=== PATIENT | female | born 1965 | race African-American/Black ===

== ENCOUNTER 2016-11-04 05:20 | Inpatient (IN) | payer MEDICARE ==
[2016-11-04] VITALS (7 sets, daily range): BP systolic 129–154; BP diastolic 63–82; PULSE 68–86; RESP 18–20; TEMP 97.7–98.3; O2SAT 97–100
[~2016-11-04] VITALS: Ht 157.5 cm; Wt 100.3 kg
[~2016-11-04 05:20] MED LIST: MORP30SU PO; ONDA1TAB16 PO
[2016-11-04] MEDS ORDERED: MORP25IN2 PO (05:28)
[2016-11-04] MEDS ORDERED: SODIUM CHLOR 0.9% 1000 ML INJ 1,000 ML IV SCH (06:10)
[2016-11-04] MEDS ORDERED: ONDANSETRON HCL 4 MG/2 ML VIAL IVP ONE (06:15)
[2016-11-04] MEDS ORDERED: SODIUM CHLORIDE 0.9% FLUSH 5 ML FLUSH IVF PRN (06:15)
[2016-11-04] MEDS ORDERED: MORPHINE SULFATE 4 MG/ML INJ IV PUSH ONE ×2 (06:15→08:45)
--- NOTE | 2016-11-04 06:39 | PD ---
HPI Chief Complaint: GI Complaint Time Seen by Provider: 05:53 Travel History International Travel<30 days: No Contact w/Intl Traveler<30days: No Traveled to known affect area: No History of Present Illness HPI Patient is a 50 year old female who comes in complaining of abdominal pain, nausea, vomiting, diarrhea. She says that she ate a dinner of eggs, grits and sausage as well as a brownie with ice cream and then she became sick. She says she vomited several times and started having diarrhea. She says she thought it was food poisoning, but when she had a bowel movement, she said it was pure blood. She says she feels weak. She denies chest pain or SOB. She denies palpitations. She says this has never happened before. Her significant other had the same food tonight and has no symptoms. PFSH Past Medical History Medical History: Denies Significant Hx Diminished Hearing: No Immunizations Current: No Tetanus Vaccination: Unknown Influenza Vaccination: No ?: Not : 3 Para: 3 Tubal Ligation: Yes (19 YRS AGO) Past Surgical History Hysterectomy: Yes Social History Alcohol Use: Yes (OCCASSIONAL) Tobacco Use: No Substance Use: No Allergies-Medications (Allergen,Severity, Reaction): Coded Allergies: Sulfa (Verified Allergy, Intermediate, ITCHES FROM "INSIDE OUT", 11/04/16) Reported Meds & Prescriptions Reported Meds & Active Scripts Active Reported Morphine Sulfate 25 Mg/Ml Inj 30 Mg PO Q4HR PRN Review of Systems Except as stated in HPI: all other systems reviewed are Neg General / Constitutional: No: Fever, Chills HENT: Positive: Lightheadedness, No: Headaches Cardiovascular: No: Chest Pain or Discomfort Respiratory: No: Shortness of Breath Gastrointestinal: Positive: Nausea, Vomiting, Diarrhea, Abdominal Pain Genitourinary: No: Dysuria Musculoskeletal: No: Edema, Pain Skin: No Change in Pigmentation Neurologic: No: Syncope Physical Exam Narrative GENERAL: Awake and alert in no acute distress. SKIN: Warm and dry. HEAD: Atraumatic. Normocephalic. EYES: Pupils equal and round. No scleral icterus. ENT: No nasal bleeding or discharge. NECK: Trachea midline. No JVD. CARDIOVASCULAR: Regular rate and rhythm. No murmur appreciated. RESPIRATORY: No accessory muscle use. Clear to auscultation. Breath sounds equal bilaterally. GASTROINTESTINAL: Abdomen soft, nondistended. Tender to palpation along left side of the abdomen as well as around the umbilicus. No rebound or guarding. RECTAL: Exam performed in the presence of female armored car guard and driver. No hemorrhoids seen. Stool positive for blood. MUSCULOSKELETAL: No obvious deformities. No clubbing. No cyanosis. No edema. NEUROLOGICAL: Awake and alert. No obvious cranial nerve deficits. Motor grossly within normal limits. Normal speech. PSYCHIATRIC: Appropriate mood and affect; insight and judgment normal. Data Data Last Documented VS Vital Signs Date Time Temp Pulse Resp B/P Pulse Ox O2 Delivery O2 Flow Rate FiO2 11/04/16 07:32 98 Room Air 11/04/16 05:22 98.3 86 20 154/82 Orders Complete Blood Count With Diff (11/04/16 06:10) Comprehensive Metabolic Panel (11/04/16 06:10) Lipase (11/04/16 06:10) Lactic Acid (11/04/16 06:10) Prothrombin Time / Inr (Pt) (11/04/16 06:10) Act Partial Throm Time (Ptt) (11/04/16 06:10) Urinalysis - C+S If Indicated (11/04/16 06:10) Ua Includes Microscopic (11/04/16 06:10) Ct Abd/Pel W Iv Contrast(Rout) (11/04/16 06:10) Iv Access Insert/Monitor (11/04/16 06:10) Ecg Monitoring (11/04/16 06:10) Oximetry (11/04/16 06:10) Ondansetron Inj (Zofran Inj) (11/04/16 06:15) Sodium Chlor 0.9% 1000 Ml Inj (Ns 1000 M (11/04/16 06:10) Sodium Chloride 0.9% Flush (Ns Flush) (11/04/16 06:15) Type And Screen (11/04/16 06:10) Morphine Inj (Morphine Inj) (11/04/16 06:15) C Diff Toxin Pcr (11/04/16 07:19) Iohexol 350 Inj (Omnipaque 350 Inj) (11/04/16 07:49) Labs Laboratory Tests Test 11/04/16 11/04/16 06:20 06:26 White Blood Count 10.3 TH/MM3 Red Blood Count 4.05 MIL/MM3 Hemoglobin 10.6 GM/DL Hematocrit 32.2 % Mean Corpuscular Volume 79.5 FL Mean Corpuscular Hemoglobin 26.1 PG Mean Corpuscular Hemoglobin 32.8 % Concent Red Cell Distribution Width 13.7 % Platelet Count 326 TH/MM3 Mean Platelet Volume 8.9 FL Neutrophils (%) (Auto) 81.5 % Lymphocytes (%) (Auto) 11.4 % Monocytes (%) (Auto) 6.6 % Eosinophils (%) (Auto) 0.1 % Basophils (%) (Auto) 0.4 % Neutrophils # (Auto) 8.4 TH/MM3 Lymphocytes # (Auto) 1.2 TH/MM3 Monocytes # (Auto) 0.7 TH/MM3 Eosinophils # (Auto) 0.0 TH/MM3 Basophils # (Auto) 0.0 TH/MM3 CBC Comment DIFF FINAL Differential Comment Prothrombin Time 10.8 SEC Prothromb Time International 1.0 RATIO Ratio Activated Partial 26.2 SEC Thromboplast Time Sodium Level 140 MEQ/L Potassium Level 3.5 MEQ/L Chloride Level 103 MEQ/L Carbon Dioxide Level 29.0 MEQ/L Anion Gap 8 MEQ/L Blood Urea Nitrogen 10 MG/DL Creatinine 0.92 MG/DL Estimat Glomerular Filtration 78 ML/MIN Rate Random Glucose 114 MG/DL Lactic Acid Level 1.3 mmol/L Calcium Level 9.1 MG/DL Total Bilirubin 0.3 MG/DL Aspartate Amino Transf 19 U/L (AST/SGOT) Alanine Aminotransferase 16 U/L (ALT/SGPT) Alkaline Phosphatase 65 U/L Total Protein 8.2 GM/DL Albumin 3.5 GM/DL Lipase 107 U/L Urine Color YELLOW Urine Turbidity CLEAR Urine pH 7.0 Urine Specific [place] 1.009 Urine Protein TRACE mg/dL Urine Glucose (UA) NEG mg/dL Urine Ketones NEG mg/dL Urine Occult Blood TRACE Urine Nitrite NEG Urine Bilirubin NEG Urine Urobilinogen LESS THAN 2.0 MG/DL Urine Leukocyte Esterase NEG Urine RBC 4 /hpf Urine WBC 3 /hpf Urine Squamous Epithelial 1 /hpf Cells Urine Bacteria RARE /hpf Urine Mucus FEW /lpf Microscopic Urinalysis Comment CULT NOT INDICATED MDM Medical Decision Making Medical Screen Exam Complete: Yes Emergency Medical Condition: Yes Medical Record Reviewed: Yes Differential Diagnosis Diverticulitis versus diverticulosis versus colitis versus infectious diarrhea Narrative Course Patient is a 50-year-old female comes in complaining of abdominal pain with nausea, vomiting, diarrhea. She is concerned because her diarrhea is full of blood. Exam shows tenderness to her abdomen without rebound or guarding. IV established, labs sent. Patient given IV fluids, Zofran, morphine. CT of the abdomen and pelvis performed. Patient signed out to Dr. Myers to follow up test results and disposition appropriately. [facility]pt Point of Care Internal Pos. & Neg. Controls: Passed Fecal Specimen Occult Blood: Positive Condition: Stable Fay Dalton MD Nov 04, 2016 06:39
[2016-11-04 06:53] LABS: AUTOMATED NEUTROPHIL # 8.4 TH/MM3 (1.8-7.7); BASOPHIL % 0.4 % (0.0-2.0); EOSINOPHIL % 0.1 % (0.0-4.0); HEMATOCRIT 32.2 % (35.0-46.0); HEMO FLAGS DIFF FINAL; LYMPH % 11.4 % (9.0-44.0); LYMPHOCYTE # 1.2 TH/MM3 (1.0-4.8); MEAN CELL VOLUME 79.5 FL (80.0-100.0); MEAN CORPUSCULAR HEMOGLOBIN 26.1 PG (27.0-34.0); MEAN CORPUSCULAR HGB CONC 32.8 % (32.0-36.0); MONO % 6.6 % (0.0-8.0); NEUT % 81.5 % (16.0-70.0); PLATELET COUNT 326 TH/MM3 (150-450); RED BLOOD COUNT 4.05 MIL/MM3 (4.00-5.30); RED CELL DISTRIBUTION WIDTH 13.7 % (11.6-17.2); WHITE BLOOD COUNT 10.3 TH/MM3 (4.0-11.0)
[2016-11-04 07:03] LABS: BACTERIA, URINE RARE /hpf; BLOOD, URINE TRACE (NEG); COMMENT (UR) CULT NOT INDICATED; CULTURE IF INDICATED CULT NOT INDICATED; GLUCOSE,URINE NEG (NEG); KETONE, URINE NEG (NEG); MUCUS URINE FEW /lpf (OCC); NITRITE,URINE NEG (NEG); SQUAMOUS EPITHELIAL CELL URINE 1 /hpf (0-5); URINE COLOR YELLOW (YELLW/STRAW)
[2016-11-04 07:19] LABS: APTT (PATIENT) 26.2 SEC (24.3-30.1); PROTHROMBIN TIME - PATIENT 10.8 SEC (9.8-11.6)
[2016-11-04 07:22] LABS: ANION GAP 8 MEQ/L (5-15); AST (GOT) 19 U/L (15-37); BLOOD UREA NITROGEN 10 MG/DL (7-18); CHLORIDE 103 MEQ/L (98-107); GLOMERULAR FILTRATION RATE 78 ML/MIN (>89); POTASSIUM 3.5 MEQ/L (3.5-5.1); SODIUM (NA) 140 MEQ/L (136-145)
[2016-11-04 07:25] LABS: ALKALINE PHOSPHATASE 65 U/L (45-117); ALT (GPT) 16 U/L (10-53); TOTAL BILIRUBIN ADULT 0.3 MG/DL (0.2-1.0)
[2016-11-04] MEDS ORDERED: IOHEXOL 350 MG/ML 10 ML VIAL (for RAD DIAG) IV ONE (07:49)
--- NOTE | 2016-11-04 08:05 | RADRPT ---
EXAM DATE/TIME: 11/04/2016 07:41 [facility] COMPARISON: CT ABDOMEN & PELVIS W/O CONTRAST, November 01, 2015, 13:56. INDICATIONS : Left sided abdominal pain with vomiting and blood in stool. IV CONTRAST: 95 cc Omnipaque 350 (iohexol) IV ORAL CONTRAST: No oral contrast ingested. RADIATION DOSE: 20.36 CTDIvol (mGy) MEDICAL HISTORY : None SURGICAL HISTORY : Tubal ligation. Hysterectomy. ENCOUNTER: Initial ACUITY: 1 day PAIN SCALE: 10/10 LOCATION: Left abdomen TECHNIQUE: Volumetric scanning of the abdomen and pelvis was performed. Using automated exposure control and ad justment of the mA and/or kV according to patient size, radiation dose was kept as low as reasonably achievable to obtain optimal diagnostic quality images. FINDINGS: LOWER LUNGS: The visualized lower lungs are clear. LIVER: Homogeneous density without lesion. There is no dilation of the biliary tree. No calcified gallston es. SPLEEN: Normal size without lesion. PANCREAS: Within normal limits. KIDNEYS: Normal in size and shape. The there is no significant hydronephrosis on the right side. There does ap pear to be 2 stones in the proximal right ureter. There is a stone measuring about 6 mm and a stone m easuring about 4 mm in the proximal right ureter. It appears these were present on the prior study. T here is a 7 mm stone at the left midpole near the left UPJ. There is also a tiny 3 mm stone in the pr oximal left ureter. There is mild prominence of the left collecting system. There is some perinephric edema surrounding the left kidney. ADRENAL GLANDS: Within normal limits. VASCULAR: There is no aortic aneurysm. BOWEL/MESENTERY: The stomach, small bowel, and colon demonstrate no acute abnormality. There is no free intraperitone al air or fluid. The appendix is unremarkable. No inflammatory changes. ABDOMINAL WALL: Within normal limits. RETROPERITONEUM: There is no lymphadenopathy. BLADDER: No wall thickening or mass. REPRODUCTIVE: Within normal limits. INGUINAL: There is no lymphadenopathy or hernia. MUSCULOSKELETAL: Within normal limits for patient age. CONCLUSION: 1. There is a 7 mm stone in the left mid kidney near the left UPJ. There is some mild hydronephrosis of the left kidney with perinephric edema. 2. There is a tiny 3 mm stone in the proximal left ureter. 3. There are 2 stones in the proximal right ureter which do not appear to causing any significant obs truction at this time. These were present on the prior examination. Zach Murillo MD on November 04, 2016 at 7:56 Board Certified Radiologist. This report was verified electronically.
--- NOTE | 2016-11-04 08:52 | PD ---
Physical Exam Date Seen by Provider: Nov 04, 2016 Time Seen by Provider: 08:49 Narrative 50-year-old female came to the emergency room with history of left flank pain and hematochezia that started last night. Patient thought that she might have had food poisoning although her and her ate the same food. The does not have these symptoms. She was seen by the previous ER physician who had done a rectal exam and was Hemoccult positive. Please refer to her notes for the details. Patient has not had anymore bowel movement in the emergency room. She says she has been going frequently to the bathroom to urinate. No history of hematuria. There was a CT scan done which was pending and for me to follow-up. Test results were within normal limit. Urine showed trace blood but otherwise negative. CT report came back and is suggestive of multiple stones in both right and the left ureter. There is one on the left ureter one of them is 7 mm and causing hydronephrosis and perinephric edema. I went and reassessed the patient and told her about the CAT scan report. Her pain she said is coming back and currently is 6-7 out of 10. I have ordered another dose of morphine. I spoke with Dr. Vargas who is on for urology today. Patient will be admitted and he will consult on the patient. He had no further suggestion at this point to add. Awaiting for the hospitalist to call back. Patient is aware that she would need to be admitted. I've ordered stool for culture and C. difficile which will be sent once patient has a bowel movement. Data Data Last Documented VS Vital Signs Date Time Temp Pulse Resp B/P Pulse Ox O2 Delivery O2 Flow Rate FiO2 11/04/16 08:05 78 18 139/76 100 Room Air 11/04/16 05:22 98.3 Orders Complete Blood Count With Diff (11/04/16 06:10) Comprehensive Metabolic Panel (11/04/16 06:10) Lipase (11/04/16 06:10) Lactic Acid (11/04/16 06:10) Prothrombin Time / Inr (Pt) (11/04/16 06:10) Act Partial Throm Time (Ptt) (11/04/16 06:10) Urinalysis - C+S If Indicated (11/04/16 06:10) Ua Includes Microscopic (11/04/16 06:10) Ct Abd/Pel W Iv Contrast(Rout) (11/04/16 06:10) Iv Access Insert/Monitor (11/04/16 06:10) Ecg Monitoring (11/04/16 06:10) Oximetry (11/04/16 06:10) Ondansetron Inj (Zofran Inj) (11/04/16 06:15) Sodium Chlor 0.9% 1000 Ml Inj (Ns 1000 M (11/04/16 06:10) Sodium Chloride 0.9% Flush (Ns Flush) (11/04/16 06:15) Type And Screen (11/04/16 06:10) Morphine Inj (Morphine Inj) (11/04/16 06:15) C Diff Toxin Pcr (11/04/16 07:19) Iohexol 350 Inj (Omnipaque 350 Inj) (11/04/16 07:49) Morphine Inj (Morphine Inj) (11/04/16 08:45) Admit Order (Ed Use Only) (11/04/16 09:14) Code Status (11/04/16 09:15) Vital Signs (Adult) Q4H (11/04/16 09:15) Activity Bed Rest With Brp (11/04/16 09:15) Intake + Output MIRIAM.QSHIFT (11/04/16 09:15) Diet Npo (11/04/16 Breakfast) Basic Metabolic Panel (Bmp) (11/05/16 06:00) Complete Blood Count With Diff (11/05/16 06:00) Scd Bilateral/Knee High MIRIAM.QSHIFT (11/04/16 09:15) Admit To Inpatient (11/04/16 ) Ceftriaxone Inj (Rocephin Inj) (11/04/16 10:00) Tamsulosin (Flomax) (11/04/16 11:00) Sodium Chlor 0.9% 1000 Ml Inj (Ns 1000 M (11/04/16 09:15) Acetaminophen (Tylenol) (11/04/16 09:15) Oxycodone (Roxicodone) (11/04/16 09:15) Morphine Inj (Morphine Inj) (11/04/16 09:15) Oxycodone (Roxicodone) (11/04/16 09:15) Naloxone Inj (Narcan Inj) (11/04/16 09:15) Labs Laboratory Tests Test 11/04/16 11/04/16 11/04/16 06:15 06:20 06:26 Blood Type O NEGATIVE Antibody Screen NEGATIVE Blood Bank Comment White Blood Count 10.3 TH/MM3 Red Blood Count 4.05 MIL/MM3 Hemoglobin 10.6 GM/DL Hematocrit 32.2 % Mean Corpuscular Volume 79.5 FL Mean Corpuscular Hemoglobin 26.1 PG Mean Corpuscular Hemoglobin 32.8 % Concent Red Cell Distribution Width 13.7 % Platelet Count 326 TH/MM3 Mean Platelet Volume 8.9 FL Neutrophils (%) (Auto) 81.5 % Lymphocytes (%) (Auto) 11.4 % Monocytes (%) (Auto) 6.6 % Eosinophils (%) (Auto) 0.1 % Basophils (%) (Auto) 0.4 % Neutrophils # (Auto) 8.4 TH/MM3 Lymphocytes # (Auto) 1.2 TH/MM3 Monocytes # (Auto) 0.7 TH/MM3 Eosinophils # (Auto) 0.0 TH/MM3 Basophils # (Auto) 0.0 TH/MM3 CBC Comment DIFF FINAL Differential Comment Prothrombin Time 10.8 SEC Prothromb Time International 1.0 RATIO Ratio Activated Partial 26.2 SEC Thromboplast Time Sodium Level 140 MEQ/L Potassium Level 3.5 MEQ/L Chloride Level 103 MEQ/L Carbon Dioxide Level 29.0 MEQ/L Anion Gap 8 MEQ/L Blood Urea Nitrogen 10 MG/DL Creatinine 0.92 MG/DL Estimat Glomerular Filtration 78 ML/MIN Rate Random Glucose 114 MG/DL Lactic Acid Level 1.3 mmol/L Calcium Level 9.1 MG/DL Total Bilirubin 0.3 MG/DL Aspartate Amino Transf 19 U/L (AST/SGOT) Alanine Aminotransferase 16 U/L (ALT/SGPT) Alkaline Phosphatase 65 U/L Total Protein 8.2 GM/DL Albumin 3.5 GM/DL Lipase 107 U/L Urine Color YELLOW Urine Turbidity CLEAR Urine pH 7.0 Urine Specific [place] 1.009 Urine Protein TRACE mg/dL Urine Glucose (UA) NEG mg/dL Urine Ketones NEG mg/dL Urine Occult Blood TRACE Urine Nitrite NEG Urine Bilirubin NEG Urine Urobilinogen LESS THAN 2.0 MG/DL Urine Leukocyte Esterase NEG Urine RBC 4 /hpf Urine WBC 3 /hpf Urine Squamous Epithelial 1 /hpf Cells Urine Bacteria RARE /hpf Urine Mucus FEW /lpf Microscopic Urinalysis Comment CULT NOT INDICATED MDM Supervised Visit with ANCA: No Physician Communication Physician Communication Dr. Vargas Diagnosis Primary Impression: Renal colic, bilateral Additional Impressions: Hydronephrosis of left kidney Hematochezia Intractable pain Admitting Information Admitting Physician Requests: Admit Condition: Stable Law Myers MD Nov 04, 2016 08:52
[2016-11-04] MEDS ORDERED: ACETAMINOPHEN 325 MG TAB PO PRN (09:15)
[2016-11-04] MEDS ORDERED: NALOXONE HCL 0.4 MG/ML AMP IV PRN (09:15)
[2016-11-04] MEDS: cefTRIAXone INJ 1,000 MG in SODIUM CHLORIDE 0.9% INJ 100 ML IV SCH (10:12)
[2016-11-04] MEDS: SODIUM CHLOR 0.9% 1000 ML INJ 1,000 ML IV SCH ×3 (10:12→23:50)
--- NOTE | 2016-11-04 10:15 | MB ---
cc: ROLAND SUÁREZ MD DATE OF CONSULTATION: 11/04/2016 REASON FOR CONSULTATION 1. Bilateral ureteral obstructing stones. 2. Left flank pain. HISTORY OF PRESENT ILLNESS The patient is a pleasant 50-year-old -Chinese female who came in with 1-day history of left-sided abdominal pain, nausea and vomiting, diarrhea with blood in her stools. The patient states last night she ate dinner and became sick so she thought it was food poisoning. She vomited several times and started having diarrhea. One of her last bowel movements she had was pure blood and her abdominal pain worsened on the left side. Therefore, she came to the ER for further evaluation. In the ER she had a CT of the abdomen and pelvis with contrast done which showed bilateral ureteral stones with greater hydronephrosis on the right compared to the left. Urology was consulted for this finding. She does complain of being weak but denies any chest pain, shortness of breath. Denies dysuria or hematuria, fevers or chills. She had a known kidney stone on the right side for about a year when she came to the ER with right-sided flank pain over a year ago. She denies any family history of kidney stones. She continues to have pain despite given morphine in the ER. She denies family history of genitourinary malignancies. PAST MEDICAL HISTORY Significant for kidney stones. PAST SURGICAL HISTORY Hysterectomy. SOCIAL HISTORY Denies tobacco or illicit drug use. Does drink alcohol socially. She is . ALLERGIES SULFA. MEDICATIONS Home medications: None. FAMILY HISTORY Denies urolithiasis or genitourinary malignancies. REVIEW OF SYSTEMS See HPI. Otherwise, all systems reviewed otherwise are negative. PHYSICAL EXAMINATION VITAL SIGNS: Temperature 98.3, pulse 78, respiratory rate 18, BP 139/76, sating 100% on room air. GENERAL: She is alert and oriented x3, in no apparent distress. Pleasant, cooperative woman who appears her stated age. HEAD: Head is normocephalic, atraumatic. EYES: No scleral icterus. Pupils equal, round, reactive to light. Extraocular muscles intact. NECK: Neck is supple. Trachea is midline. No JVD. ENT: No nasal bleeding or discharge. Hearing is normal. CARDIOVASCULAR: Regular rate and rhythm. No murmurs, gallops or rubs. RESPIRATORY: Clear to auscultation bilaterally. No wheezes, rales or rhonchi. GASTROINTESTINAL: Abdomen is soft, nondistended. Positive bowel sounds. No peritoneal signs. GENITOURINARY: No CVA tenderness bilaterally. PELVIC: Exam not indicated at this time. MUSCULOSKELETAL: No clubbing, cyanosis, edema, nontender. Full range of motion x4. PSYCHE: Appropriate mood and affect. SKIN: No ulcers or rashes. Warm and dry. Did not appear to be Dehydrated. LABORATORY DATA White count 10.3, hemoglobin 10.6, hematocrit 32.2, platelet count 326. Sodium 140, potassium 3.5, chloride 103, bicarb 29, BUN 10, creatinine 0.92, glucose 114. Urine shows trace blood, otherwise negative nitrites. IMAGING STUDIES CT of the abdomen and pelvis with and without contrast was reviewed. Images reviewed and agree with radiologist's report, has bilateral obstructing ureteral stones as well as non-obstructing left approximately 8 mm renal stone. ASSESSMENT The patient is a 50-year-old -Chinese female, who presents with abdominal pain, nausea, vomiting, was found to have bilateral obstructing ureteral stones. PLAN Even though she is making urine and pain only on her left side, she does have bilateral obstructing stones which she is at significant risk for acute renal failure. Due to her uncontrolled pain and these bilateral stones, we will schedule her for cystoscopy, bilateral retrograde pyelogram and bilateral ureteral stent insertion under anesthesia today. I discussed the risks, benefits, alternatives with the patient regarding the procedure including anesthesia risks and the inability to pass ureteral stents. She understood these risks, all questions were answered. Informed consent was obtained. Will obtain EKG preoperatively. Roland Suárez MD EMF/FAUSTINO /9:37 AM /9:50 AM
--- NOTE | 2016-11-04 10:50 | HHI.HP ---
[facility] Service [facility] Primary Care Physician No Primary Care Physician Admission Diagnosis renal colic, hydronephrosis, hematochezia, intractable pain Diagnoses: Chief Complaint: GI bleeding and abdominal pain Travel History International Travel<30 Days: No Contact w/Intl Traveler <30 Da: No Traveled to Known Affected Are: No History of Present Illness This is a 50-year-old female with no comorbidities other than history of right urolithiasis presenting with left back pain and hematochezia since yesterday night after dinner. She just ate her usual dinner at home when she started having left flank pain, moderate, nonradiating, associated with loose stools with red blood and tenesmus. She thought she had food poisoning. She also had nausea and vomiting of post prandial material but no hematemesis. She did not have any fever, chills, chest pain, shortness of breath, headache, urinary symptoms or hematuria. Now, she is also having right sided moderate abdominal pain, nonradiating. CT scan of the abdomen was then at the ED which showed bilateral renal stones with hydronephrosis on the left with perinephric edema. Of note, she takes morphine and Goody's ( caffeine, Tylenol, aspirin) also a daily basis for her chronic neck pain. No previous colonoscopy, no history of colon cancer or peptic ulcer disease in the family. . There is also no history of Crohn's disease or inflammatory bowel disease in family. No recent antibiotic use. Review of Systems ROS Limitations: Other (All other pertinent systems were reviewed and are negative.) Past Family Social History Past Medical History Chronic neck pain Right urolithiasis Past Surgical History Neck surgery Reported Medications Morphine Sulfate 25 Mg/Ml Inj 30 Mg PO Q4HR PRN Allergies: Coded Allergies: Sulfa (Verified Allergy, Intermediate, ITCHES FROM "INSIDE OUT", 11/04/16) Family History History of endstage showed disease in both parents, mother has diabetes. Social History Patient denies smoking, significant alcohol intake or use of any illicit drugs. Physical Exam Vital Signs Vital Signs Date Time Temp Pulse Resp B/P Pulse Ox O2 Delivery O2 Flow Rate FiO2 11/04/16 10:16 74 20 130/70 100 Room Air 11/04/16 08:05 78 18 139/76 100 Room Air 11/04/16 07:32 98 Room Air 11/04/16 05:22 98.3 86 20 154/82 100 Room Air Physical Exam GENERAL: Not in acute distress, well-nourished. HEAD: Atraumatic. Normocephalic. No temporal or scalp tenderness. EYES: PERRL, full EOMs, no jaundice, nonicteric, pink conjunctivae without injection, moist mucosa ENT: Nose without bleeding, purulent drainage. Throat without erythema, tonsillar hypertrophy or exudate. Dry oral mucosa. NECK: Trachea midline, no mass, no obvious thyromegaly. No JVD or lymphadenopathy. CARDIOVASCULAR: Regular rate and rhythm without murmurs, gallops, or rubs. RESPIRATORY: Clear to auscultation with normal respiratory effort. Breath sounds equal bilaterally. No use of accessory muscles of respiration. GASTROINTESTINAL: Abdomen soft, obese, normal bowel sounds, mild left-sided tenderness, nondistended. No hepato-splenomegaly or palpable mass. No guarding. BEAN and exam deferred. MUSCULOSKELETAL: Extremities without clubbing, cyanosis, or edema. No joint tendernes. No calf tenderness. Distal pulses intact, 2+ bilaterally. INTEGUMENTARY: Warm and dry, no rash of generalized distribution. NEUROLOGICAL: Awake, alert, oriented 3. No obvious cranial nerve deficits. Moves all 4 extremities, muscle strength testing 5 over 5. Motor and sensory grossly within normal limits. .Supple neck, no meningeal signs. Grossly negative cerebellar examination. No focal neurologic deficits. PSYCHIATRIC: Normal mood, appropriate affect. Laboratory Laboratory Tests Test 11/04/16 11/04/16 11/04/16 06:15 06:20 06:26 Blood Type O NEGATIVE Antibody Screen NEGATIVE Blood Bank Comment White Blood Count 10.3 Red Blood Count 4.05 Hemoglobin 10.6 Hematocrit 32.2 Mean Corpuscular Volume 79.5 Mean Corpuscular Hemoglobin 26.1 Mean Corpuscular Hemoglobin 32.8 Concent Red Cell Distribution Width 13.7 Platelet Count 326 Mean Platelet Volume 8.9 Neutrophils (%) (Auto) 81.5 Lymphocytes (%) (Auto) 11.4 Monocytes (%) (Auto) 6.6 Eosinophils (%) (Auto) 0.1 Basophils (%) (Auto) 0.4 Neutrophils # (Auto) 8.4 Lymphocytes # (Auto) 1.2 Monocytes # (Auto) 0.7 Eosinophils # (Auto) 0.0 Basophils # (Auto) 0.0 CBC Comment DIFF FINAL Differential Comment Prothrombin Time 10.8 Prothromb Time International 1.0 Ratio Activated Partial 26.2 Thromboplast Time Sodium Level 140 Potassium Level 3.5 Chloride Level 103 Carbon Dioxide Level 29.0 Anion Gap 8 Blood Urea Nitrogen 10 Creatinine 0.92 Estimat Glomerular Filtration 78 Rate Random Glucose 114 Lactic Acid Level 1.3 Calcium Level 9.1 Total Bilirubin 0.3 Aspartate Amino Transf 19 (AST/SGOT) Alanine Aminotransferase 16 (ALT/SGPT) Alkaline Phosphatase 65 Total Protein 8.2 Albumin 3.5 Lipase 107 Urine Color YELLOW Urine Turbidity CLEAR Urine pH 7.0 Urine Specific [place] 1.009 Urine Protein TRACE Urine Glucose (UA) NEG Urine Ketones NEG Urine Occult Blood TRACE Urine Nitrite NEG Urine Bilirubin NEG Urine Urobilinogen LESS THAN 2.0 Urine Leukocyte Esterase NEG Urine RBC 4 Urine WBC 3 Urine Squamous Epithelial 1 Cells Urine Bacteria RARE Urine Mucus FEW Microscopic Urinalysis Comment CULT NOT INDICATED Result Diagram: 11/04/1661911/04/16619 Imaging Last Impressions Abdomen/Pelvis CT 11/04/16609 Signed Impressions: Service Date/Time: Friday, November 04, 2016 07:41 - CONCLUSION: 1. There is a 7 mm stone in the left mid kidney near the left UPJ. There is some mild hydronephrosis of the left kidney with perinephric edema. 2. There is a tiny 3 mm stone in the proximal left ureter. 3. There are 2 stones in the proximal right ureter which do not appear to causing any significant obstruction at this time. These were present on the prior examination. Zach Murillo MD Assessment and Plan Assessment and Plan This is a 50-year-old female with history of right urolithiasis presenting with hematochezia and abdominal pain Hematochezia with abdominal pain secondary to GI bleed-possible colitis, doubt peptic ulcer disease but taking aspirin, nothing by mouth for now, consult GI, discussed with Dr. Rodriguez, start Protonix twice a day intravenously, with likely need at least a colonoscopy. Continue IVF, H&H every 12 hours. Doubt infectious, no leukocytosis. Start pain control with oral intravenous morphine. Monitor hemoglobin every 12 hours, patient is a [employer], discussed extensively, patient refuses blood transfusion even if she critically needs it or may lead to or significant morbidity. Bilateral urolithiasis with hydronephrosis on the left with perinephric edema- urinalysis unremarkable but CT scan of the abdomen personally reviewed showed bilateral urolithiasis, with hydronephrosis on the left and perinephric edema. Start ceftriaxone empirically, follow-up urine culture, consult urology. For surgery today with cystoscopy, pyelogram, stenting. Chronic neck pain-continue oral morphine per home dose DVT prophylaxis: SCDs, pharmacological contraindication because of GI bleed Physician Certification 2 Midnight Certification Type: Admission for Inpatient Services Order for Inpatient Services The services are ordered in accordance with Medicare regulations or non- Medicare payer requirements, as applicable. In the case of services not specified as inpatient-only, they are appropriately provided as inpatient services in accordance with the 2-midnight benchmark. Estimated LOS (days): 3 days is the estimated time the patient will need to remain in the hospital, assuming treatment plan goals are met and no additional complications. Post-Hospital Plan: Home Magalis Hubbard MD Nov 04, 2016 10:50
[2016-11-04] MEDS ORDERED: MORPHINE SULFATE ORAL SOLN 10 MG/0.5 ML SYRINGE PO PRN (11:00)
[2016-11-04] MEDS ORDERED: SODIUM CHLORIDE 0.9% FLUSH 5 ML FLUSH IV PRN (11:00)
[2016-11-04] MEDS ORDERED: TAMSULOSIN HCL 0.4 MG CAP PO SCH (11:00)
[2016-11-04] MEDS ORDERED: ONDANSETRON HCL 4 MG/2 ML VIAL IV PRN (11:00)
[2016-11-04] MEDS ORDERED: ONDANSETRON HCL 4 MG/2 ML VIAL IV PUSH ONE (11:58)
[2016-11-04] MEDS ORDERED: PROPOFOL 200 MG/20 ML AMP IV ONE (11:58)
[2016-11-04] MEDS ORDERED: PEG (High)/E-LYTE SOLN 4000 ML BTL PO ONE (12:00)
--- NOTE | 2016-11-04 12:16 | PD.CONS ---
HPI History of Present Illness This is a 50 year old female being seen for GI consult due to rectal bleeding and abdominal pain. Patient came to ER due to these symptoms. Yesterday she had new onset L side flank pain, nonradiating after eating her dinner. She also reports loose stool with red blood, and nausea and vomiting, without hematemesis. Past medical history includes chronic neck pain, R urolithiasis. She takes morphine at home for neck pain. Takes OTC Tylenol and Aspirin. Patient scheduled for stent placement today due to bilateral urolithiasis. She is a [employer] and is refusing blood transfusions if needed. Hgb 10.6, Hct 32.2. Never had colonoscopy/EGD in past. Denies family history of colon cancer or ulcerative colitis. (Kristy Hoang) PFSH Past Medical History -Chronic neck pain -Right urolithiasis Past Surgical History -Neck surgery (Kristy Hoang) Coded Allergies: Sulfa (Verified Allergy, Intermediate, ITCHES FROM "INSIDE OUT", 11/04/16) Medications Current Medications Medications (Trade) Dose Ordered Sig/Frandy Route PRN Reason Start Time Stop Time Status Last Admin Dose Admin IV Flush 2 ml 2 ml UNSCH PRN IVF FLUSH AFTER USING IV ACCESS 11/04/16 06:15 Ceftriaxone Sodium 1000 mg/ Sodium Chloride 100 ml @ 200 mls/hr Q24H IV 11/04/16 10:00 11/04/16 10:12 Sodium Chloride (NS 1000 ml Inj) 1,000 ml @ 125 mls/hr Q8H IV 11/04/16 09:15 11/04/16 10:12 Acetaminophen (Tylenol) 650 mg Q6H PRN PO PAIN SCALE 1 TO 2 11/04/16 09:15 Morphine Sulfate (Morphine Inj) 5 mg Q3H PRN IV BREAKTHROUGH PAIN/NPO 11/04/16 09:15 Naloxone HCl (Narcan Inj) 0.4 mg UNSCH PRN IV SEE LABEL COMMENTS 11/04/16 09:15 IV Flush (NS Flush) 2 ml UNSCH PRN IV FLUSH AFTER USING IV ACCESS 11/04/16 11:00 IV Flush (NS Flush) 2 ml BID IV 11/04/16 21:00 Ondansetron HCl (Zofran Inj) 4 mg Q6H PRN IV NAUSEA 11/04/16 11:00 Pantoprazole Sodium (Protonix Inj) 40 mg Q12H IV 11/04/16 11:00 Morphine Sulfate (Roxanol Liq) 30 mg Q6H PRN PO pain 3-10 11/04/16 11:00 Polyethylene Glycol/ Electrolytes (Colyte Liq) 4,000 ml ONCE ONCE PO 11/04/16 12:00 11/04/16 12:01 UNV Family History -No family history of colon cancer or ulcerative colitis Social History -Rare ETOH -No tobacco use -No illicit drug use (Kristy Hoang) Review of Systems Constitutional: DENIES: Diaphoretic episodes, Fatigue, Fever, Weight gain, Weight loss, Chills, Dizziness, Change in appetite Endocrine: DENIES: Polydipsia, Polyuria Eyes: DENIES: Blurred vision, Photosensitivity, Double Vision Ears, nose, mouth, throat: DENIES: Hearing loss, Vertigo, Oral lesions, Throat pain, Hoarseness Respiratory: DENIES: Cough, Wheezing, Hemoptysis, Sputum production, Shortness of breath Cardiovascular: DENIES: Chest pain, Palpitations, Syncope, Lower Extremity Edema, Orthopnea, Claudication Gastrointestinal: COMPLAINS OF: Abdominal pain, Bloody stools, Diarrhea, DENIES: Difficulty Swallowing, Anorexia, Swelling of Abdomen, Heartburn, Hematemesis Genitourinary: DENIES: Urinary frequency, Hematuria, Dysuria Musculoskeletal: COMPLAINS OF: Back pain (L flank ), Neck pain (chronic ), DENIES: Joint pain, Muscle aches Integumentary: DENIES: Pruritus, Rash, Jaundice Hematologic/lymphatic: DENIES: Bruising Immunologic/allergic: DENIES: Eczema Neurologic: DENIES: Abnormal gait, Headache, Localized weakness, Paresthesias Psychiatric: DENIES: Anxiety, Confusion, Mood changes, Depression, Agitation, Suicidal Ideation (Kristy Hoang) GI Exam Vitals I&O Vital Signs Date Time Temp Pulse Resp B/P Pulse Ox O2 Delivery O2 Flow Rate FiO2 11/04/16 11:27 72 18 129/63 100 Room Air 11/04/16 10:16 74 20 130/70 100 Room Air 11/04/16 08:05 78 18 139/76 100 Room Air 11/04/16 07:32 98 Room Air 11/04/16 05:22 98.3 86 20 154/82 100 Room Air Imaging Last Impressions Abdomen/Pelvis CT 11/04/16 0610 Signed Impressions: Service Date/Time: Friday, November 04, 2016 07:41 - CONCLUSION: 1. There is a 7 mm stone in the left mid kidney near the left UPJ. There is some mild hydronephrosis of the left kidney with perinephric edema. 2. There is a tiny 3 mm stone in the proximal left ureter. 3. There are 2 stones in the proximal right ureter which do not appear to causing any significant obstruction at this time. These were present on the prior examination. Zach Murillo MD Laboratory Test 11/04/16 11/04/16 11/04/16 06:15 06:20 06:26 Blood Type O NEGATIVE Antibody Screen NEGATIVE Blood Bank Comment White Blood Count 10.3 TH/MM3 Red Blood Count 4.05 MIL/MM3 Hemoglobin 10.6 GM/DL Hematocrit 32.2 % Mean Corpuscular Volume 79.5 FL Mean Corpuscular Hemoglobin 26.1 PG Mean Corpuscular Hemoglobin 32.8 % Concent Red Cell Distribution Width 13.7 % Platelet Count 326 TH/MM3 Mean Platelet Volume 8.9 FL Neutrophils (%) (Auto) 81.5 % Lymphocytes (%) (Auto) 11.4 % Monocytes (%) (Auto) 6.6 % Eosinophils (%) (Auto) 0.1 % Basophils (%) (Auto) 0.4 % Neutrophils # (Auto) 8.4 TH/MM3 Lymphocytes # (Auto) 1.2 TH/MM3 Monocytes # (Auto) 0.7 TH/MM3 Eosinophils # (Auto) 0.0 TH/MM3 Basophils # (Auto) 0.0 TH/MM3 CBC Comment DIFF FINAL Differential Comment Prothrombin Time 10.8 SEC Prothromb Time International 1.0 RATIO Ratio Activated Partial 26.2 SEC Thromboplast Time Sodium Level 140 MEQ/L Potassium Level 3.5 MEQ/L Chloride Level 103 MEQ/L Carbon Dioxide Level 29.0 MEQ/L Anion Gap 8 MEQ/L Blood Urea Nitrogen 10 MG/DL Creatinine 0.92 MG/DL Estimat Glomerular Filtration 78 ML/MIN Rate Random Glucose 114 MG/DL Lactic Acid Level 1.3 mmol/L Calcium Level 9.1 MG/DL Total Bilirubin 0.3 MG/DL Aspartate Amino Transf 19 U/L (AST/SGOT) Alanine Aminotransferase 16 U/L (ALT/SGPT) Alkaline Phosphatase 65 U/L Total Protein 8.2 GM/DL Albumin 3.5 GM/DL Lipase 107 U/L Urine Color YELLOW Urine Turbidity CLEAR Urine pH 7.0 Urine Specific [place] 1.009 Urine Protein TRACE mg/dL Urine Glucose (UA) NEG mg/dL Urine Ketones NEG mg/dL Urine Occult Blood TRACE Urine Nitrite NEG Urine Bilirubin NEG Urine Urobilinogen LESS THAN 2.0 MG/DL Urine Leukocyte Esterase NEG Urine RBC 4 /hpf Urine WBC 3 /hpf Urine Squamous Epithelial 1 /hpf Cells Urine Bacteria RARE /hpf Urine Mucus FEW /lpf Microscopic Urinalysis Comment CULT NOT INDICATED Physical Examination HEENT: PERRLA NECK: Neck is supple,trachea midline CHEST: CTA CARDIAC: RRR ABDOMEN: Soft, obese. Tenderness on palpation of left upper quadrant. EXTREMITIES: No peripheral edema. SKIN: Normal. No jaundice. DIRECTOR INTERNATIONAL: A&O x 3. (Kristy Hoang) Assessment and Plan Plan ASSESSMENT: -Hematochezia--Hgb 10.6, Hct 32.2. Never had colonoscopy. Patient is a Jehovah' s witness and is refusing blood transfusion if needed. -Bilateral Urolithiasis--Abdomen/Pelvis CT-There is a 7 mm stone in the left mid kidney near the left UPJ. There is some mild hydronephrosis of the left kidney with perinephric edema. There is a tiny 3 mm stone in the proximal left ureter. There are 2 stones in the proximal right ureter which do not appear to causing any significant obstruction at this time. These were present on the prior examination. Scheduled for cystoscopy, pyelogram, and stent placement today. -Chronic neck pain PLAN: -Colonoscopy -Obtain consents -NPO -Bowel prep -Monitor H&H q12h -Continue Protonix IV -Further recommendations to follow based on results of above. Patient seen and examined by Dr. Schreiber and myself and this note is written on his behalf. (Kristy Hoang) Physician Comments Seen and examined with RACHNA, no bleeding today. Colonoscopy tomorrow. Prep today after Ureteral stents. Discussed with pt. and family. Thank you (Mary Schreiber MD) Kristy Hoang Nov 04, 2016 12:16 Mary Schreiber MD Nov 04, 2016 13:14
[2016-11-04] MEDS ORDERED: IOHEXOL 300 MG/ML 50 ML BTL (for RAD DIAG) ONE (12:47)
--- NOTE | 2016-11-04 12:50 | EKG ---
Date Performed: 11/04/2016 Time Performed: 10:27:40 PTAGE: 50 years EKG: Sinus rhythm MODERATE T-WAVE ABNORMALITY, CONSIDER ANTERIOR ISCHEMIA ABNORMAL ECG NO PREVIOUS TRACING DOCTOR: Ronal Arriaza Interpretating Date/Time 11/04/2016 12:48:51
--- NOTE | 2016-11-04 13:04 | PD.OP ---
Operative Report Date of Surgery: Nov 04, 2016 Preoperative Diagnosis: (1) Renal colic, bilateral (2) Hydronephrosis of left kidney Postoperative Diagnosis: Procedure: cystoscopy, bilateral retrograde pyelogram, bilateral ureteral stent insertion. Surgeon: Roland Vargas Hat Stock Laminating Machine Operator(s): n/a Operation and Findings: See dictated noted. Outpatient treatment of kidney stones. Roland Vargas MD Nov 04, 2016 13:04
[2016-11-04] MEDS ORDERED: MIDAZOLAM HCL 2 MG/2 ML VIAL ONE (13:17)
[2016-11-04] MEDS ORDERED: fentaNYL CITRATE 250 MCG/5 ML AMP ONE (13:18)
[2016-11-04] MEDS: PANTOPRAZOLE SODIUM 40 MG VIAL IV SCH ×2 (15:26→23:45)
[2016-11-04] MEDS: MORPHINE SULFATE 4 MG/ML INJ IV PRN ×2 (16:46→21:12)
[2016-11-04 17:04] LABS: HEMATOCRIT 33.5 % (35.0-46.0); REVIEW FLAG FINAL
[2016-11-04] MEDS: MORPHINE SULFATE ORAL SOLN 10 MG/0.5 ML SYRINGE PO PRN ×2 (20:06→23:46)
[2016-11-04] MEDS: SODIUM CHLORIDE 0.9% FLUSH 5 ML FLUSH IV SCH (21:11)
[2016-11-05] VITALS (7 sets, daily range): BP systolic 133–153; BP diastolic 62–75; PULSE 61–76; RESP 18–20; TEMP 97–98.5; O2SAT 96–100
[2016-11-05 00:41] LABS: HEMATOCRIT 30.7 % (35.0-46.0); REVIEW FLAG FINAL
[2016-11-05] MEDS: MORPHINE SULFATE 4 MG/ML INJ IV PRN ×3 (02:28→16:51)
[2016-11-05 07:20] LABS: PROTHROMBIN TIME - PATIENT 11.3 SEC (9.8-11.6)
[2016-11-05 07:33] LABS: BICARBONATE 24.7 MEQ/L (21.0-32.0); POTASSIUM 3.5 MEQ/L (3.5-5.1)
[2016-11-05 07:50] LABS: HEMATOCRIT 30.9 % (35.0-46.0); MEAN CELL VOLUME 81.4 FL (80.0-100.0); MEAN CORPUSCULAR HEMOGLOBIN 26.2 PG (27.0-34.0); MEAN CORPUSCULAR HGB CONC 32.2 % (32.0-36.0); PLATELET COUNT 334 TH/MM3 (150-450); RED BLOOD COUNT 3.79 MIL/MM3 (4.00-5.30); RED CELL DISTRIBUTION WIDTH 14.5 % (11.6-17.2); WHITE BLOOD COUNT 10.7 TH/MM3 (4.0-11.0)
[2016-11-05 08:01] LABS: HEMO FLAGS AUTO DIFF
[2016-11-05] MEDS ORDERED: LACTATED RINGER'S 1,000 ML BAG XX ONE (09:22)
[2016-11-05] MEDS ORDERED: PROPOFOL 200 MG/20 ML AMP IV ONE (09:35)
[2016-11-05 09:42] LABS: NEUTROPHIL # MANUAL DIFF 7.9 TH/MM3 (1.8-7.7); POLYS (SEG NEUTROPHILS) 74 % (16-70); WBC DIFF SAMPLE 100
[2016-11-05 09:43] LABS: PLATELET ESTIMATE SMEAR NORMAL (NORMAL); PLATELET MORPHOLOGY NORMAL (NORMAL); SCAN/DIFF FINAL DIFF MANUAL
--- NOTE | 2016-11-05 10:13 | HHI.PR ---
Subjective Remarks f/u abdominal pain and GI bleed still with R flank pain but better after stenting, s/p bilateral ureteral stent placement 11/04/16. s/p colonoscopy today showed colitis , possibly ischemic, still with hematochezia, Hgb is stable Objective Vitals Vital Signs Date Time Temp Pulse Resp B/P Pulse Ox O2 Delivery O2 Flow Rate FiO2 11/05/16 09:47 98.1 87 16 138/64 95 11/05/16 09:20 97.7 67 20 153/75 96 11/05/16 04:00 97.7 67 18 143/67 100 11/05/16 00:00 98.2 67 18 146/67 100 11/05/16 00:00 Room Air 11/04/16 20:00 97.7 78 18 146/65 99 11/04/16 20:00 Room Air 11/04/16 16:00 97.9 68 18 133/73 97 11/04/16 14:00 78 16 145/85 96 Room Air 11/04/16 13:45 70 16 152/82 99 11/04/16 13:30 72 16 144/77 99 Nasal Cannula 2 11/04/16 13:15 82 16 129/71 99 Nasal Cannula 2 11/04/16 13:10 98.5 80 16 129/69 98 Nasal Cannula 2 11/04/16 11:27 72 18 129/63 100 Room Air 11/04/16 10:16 74 20 130/70 100 Room Air I/O 11/04/16 11/04/16 11/04/16 11/05/16 11/05/16 11/05/16 07:00 15:00 23:00 07:00 15:00 23:00 Intake Total 100 ml 1404 ml 1042 ml 175 ml Output Total 200 ml 2025 ml Balance 100 ml 1204 ml -983 ml 175 ml Intake Oral 440 ml 0 ml IV Total 100 ml 964 ml 1042 ml 175 ml Output Urine Total 200 ml 2025 ml # Voids 1 # Bowel Movements 0 3 Result Diagram: 11/05/16 0534 11/05/16 0532 Objective Remarks GENERAL: Not in acute distress, well-nourished. EYES: PERRL, full EOMs, no jaundice, nonicteric, pink conjunctivae without injection, moist mucosa ENT: Nose without bleeding, purulent drainage.Dry oral mucosa. NECK: Trachea midline, no mass, no obvious thyromegaly. CARDIOVASCULAR: Regular rate and rhythm without murmurs, gallops, or rubs. RESPIRATORY: Clear to auscultation with normal respiratory effort. Breath sounds equal bilaterally. No use of accessory muscles of respiration. GASTROINTESTINAL: Abdomen soft, obese, normal bowel sounds, mild left-sided tenderness, nondistended. MUSCULOSKELETAL: Extremities without clubbing, cyanosis, or edema. INTEGUMENTARY: Warm and dry, no rash of generalized distribution. NEUROLOGICAL: Awake, alert, oriented 3. No obvious cranial nerve deficits. Moves all 4 extremities, muscle strength testing 5 over 5. No focal neurologic deficits. A/P Assessment and Plan This is a 50-year-old female with history of right urolithiasis presenting with hematochezia and abdominal pain Hematochezia with abdominal pain secondary to GI bleed- GI consulted, s/p colonoscopy 11/05, showed possibly ischemic colitis, Hgb stable, Protonix twice a day intravenously, Continue IVF, H&H every 12 hours. F/U biopsy results. Monitor hemoglobin , patient is a Jehovah's witness, discussed extensively, patient refuses blood transfusion even if she critically needs it or may lead to or significant morbidity. Bilateral urolithiasis with hydronephrosis on the left with perinephric edema- urinalysis unremarkable but CT scan of the abdomen personally reviewed showed bilateral urolithiasis, with hydronephrosis on the left and perinephric edema. Urology following, s/p bilateral stenting, cont ceftriaxone empirically, follow -up urine culture, recheck CBC and BMP tomorrow. Chronic neck pain-continue oral morphine per home dose DVT prophylaxis: SCDs, pharmacological contraindication because of GI bleed Magalis Hubbard MD Nov 05, 2016 10:13 surgery today with cystoscopy, pyelogram, stenting. Chronic neck pain-continue oral morphine per home dose DVT prophylaxis: SCDs, pharmacological contraindication because of GI bleed Magalis Hubbard MD Nov 05, 2016 10:13
[2016-11-05 11:05] LABS: HEMATOCRIT 31.2 % (35.0-46.0); REVIEW FLAG FINAL
[2016-11-05] MEDS: cefTRIAXone INJ 1,000 MG in SODIUM CHLORIDE 0.9% INJ 100 ML IV SCH (11:42)
[2016-11-05] MEDS: MORPHINE SULFATE ORAL SOLN 10 MG/0.5 ML SYRINGE PO PRN ×2 (11:42→20:58)
[2016-11-05] MEDS: PANTOPRAZOLE SODIUM 40 MG VIAL IV SCH ×2 (11:42→21:00)
[2016-11-05] MEDS: SODIUM CHLORIDE 0.9% FLUSH 5 ML FLUSH IV SCH ×2 (11:49→21:00)
[2016-11-05] MEDS: SODIUM CHLOR 0.9% 1000 ML INJ 1,000 ML IV SCH ×3 (11:50→21:04)
[2016-11-06] VITALS (7 sets, daily range): BP systolic 115–152; BP diastolic 55–82; PULSE 70–84; RESP 18–23; TEMP 97.4–99.3; O2SAT 96–100
[2016-11-06] MEDS: MORPHINE SULFATE ORAL SOLN 10 MG/0.5 ML SYRINGE PO PRN ×5 (01:47→21:32)
[2016-11-06] MEDS: SODIUM CHLOR 0.9% 1000 ML INJ 1,000 ML IV SCH ×3 (04:24→22:42)
[2016-11-06] MEDS: SODIUM CHLORIDE 0.9% FLUSH 5 ML FLUSH IV SCH ×2 (09:15→21:00)
[2016-11-06] MEDS: cefTRIAXone INJ 1,000 MG in SODIUM CHLORIDE 0.9% INJ 100 ML IV SCH (09:16)
[2016-11-06] MEDS: PANTOPRAZOLE SODIUM 40 MG VIAL IV SCH ×2 (09:16→22:40)
[2016-11-06 09:41] LABS: AUTOMATED NEUTROPHIL # 3.5 TH/MM3 (1.8-7.7); BASOPHIL % 0.3 % (0.0-2.0); EOSINOPHIL # 0.1 TH/MM3 (0-0.4); EOSINOPHIL % 1.4 % (0.0-4.0); HEMATOCRIT 27.3 % (35.0-46.0); HEMO FLAGS DIFF FINAL; LYMPH % 36.1 % (9.0-44.0); LYMPHOCYTE # 2.4 TH/MM3 (1.0-4.8); MEAN CORPUSCULAR HEMOGLOBIN 26.4 PG (27.0-34.0); MEAN CORPUSCULAR HGB CONC 32.6 % (32.0-36.0); MONO % 7.7 % (0.0-8.0); NEUT % 54.5 % (16.0-70.0); PLATELET COUNT 273 TH/MM3 (150-450); RED BLOOD COUNT 3.37 MIL/MM3 (4.00-5.30); RED CELL DISTRIBUTION WIDTH 14.3 % (11.6-17.2); WHITE BLOOD COUNT 6.5 TH/MM3 (4.0-11.0)
[2016-11-06] MEDS ORDERED: PERC10TA27 PO (09:48)
[2016-11-06 09:57] LABS: BICARBONATE 27.7 MEQ/L (21.0-32.0); POTASSIUM 3.2 MEQ/L (3.5-5.1)
--- NOTE | 2016-11-06 12:45 | HHI.PR ---
Subjective Remarks Follow-up for GI bleed, kidney stone Still with mild hematuria but no further hematochezia. Hemoglobin dropped low. Patient feels well, still with mild left sided abdominal pain. No nausea or vomiting. Afebrile Objective Vitals Vital Signs Date Time Temp Pulse Resp B/P Pulse Ox O2 Delivery O2 Flow Rate FiO2 11/06/16 09:15 Room Air 11/06/16 08:00 99.3 72 20 115/82 96 11/06/16 04:00 98.3 74 18 118/55 96 11/06/16 00:00 98.2 84 18 129/60 100 11/05/16 21:50 16 11/05/16 21:00 Room Air 11/05/16 20:00 98.2 76 18 152/68 100 11/05/16 19:40 18 11/05/16 16:00 97 Room Air 11/05/16 16:00 97.7 65 20 140/66 97 I/O 11/05/16 11/05/16 11/05/16 11/06/16 11/06/16 11/06/16 07:00 15:00 23:00 07:00 15:00 23:00 Intake Total 1042 ml 655 ml 240 ml 240 ml Output Total 2025 ml 700 ml Balance -983 ml 655 ml 240 ml -460 ml Intake Oral 0 ml 480 ml 240 ml 240 ml IV Total 1042 ml 175 ml Output Urine Total 2025 ml 700 ml # Voids 4 2 # Bowel Movements 3 0 1 0 Result Diagram: 11/06/16 0707 11/06/16 07 Objective Remarks GENERAL: Not in acute distress, well-nourished. EYES: PERRL, full EOMs, no jaundice, nonicteric, pink conjunctivae without injection, moist mucosa ENT: Nose without bleeding, purulent drainage.Dry oral mucosa. NECK: Trachea midline, no mass, no obvious thyromegaly. CARDIOVASCULAR: Regular rate and rhythm without murmurs, gallops, or rubs. RESPIRATORY: Clear to auscultation with normal respiratory effort. Breath sounds equal bilaterally. No use of accessory muscles of respiration. GASTROINTESTINAL: Abdomen soft, obese, normal bowel sounds, mild left-sided tenderness, nondistended. MUSCULOSKELETAL: Extremities without clubbing, cyanosis, or edema. INTEGUMENTARY: Warm and dry, no rash of generalized distribution. NEUROLOGICAL: Awake, alert, oriented 3. No obvious cranial nerve deficits. Moves all 4 extremities, muscle strength testing 5 over 5. No focal neurologic deficits. A/P Assessment and Plan This is a 50-year-old female with history of right urolithiasis presenting with hematochezia and abdominal pain Hematochezia with abdominal pain secondary to GI bleed- GI consulted, s/p colonoscopy 11/05, showed possibly ischemic colitis, Hgb stable, hemoglobin dropped, recheck H&H tomorrow. F/U biopsy results. Monitor hemoglobin , patient is a [employer], discussed extensively, patient refuses blood transfusion even if she critically needs it or may lead to or significant morbidity. If hemoglobin is stable and cleared by GI, may discharge. Recheck hemoglobin at 3 PM Bilateral urolithiasis with hydronephrosis on the left with perinephric edema- urinalysis unremarkable but CT scan of the abdomen personally reviewed showed bilateral urolithiasis, with hydronephrosis on the left and perinephric edema. Urology following, discussed with job [employer] for discharge, s/p bilateral stenting, cont ceftriaxone empirically, switch to Augmentin.. Cultures negative. Chronic neck pain-continue oral morphine per home dose DVT prophylaxis: SCDs, pharmacological contraindication because of GI bleed Discharge Planning Discharge once cleared by GI, and if hemoglobin remains stable. Magalis Hubbard MD Nov 06, 2016 12:45
--- NOTE | 2016-11-06 13:08 | MP ---
cc: ALEM SUÁREZ MD DATE OF SURGERY 11/04/2016 PREOPERATIVE DIAGNOSES 1. Bilateral obstructing ureter kidney stones. 2. Left flank pain. POSTOPERATIVE DIAGNOSES 1. Bilateral obstructing ureter kidney stones. 2. Left flank pain. PROCEDURE PERFORMED 1. Cystourethroscopy. 2. Bilateral retrograde pyelogram. 3. Bilateral ureteral stents. SURGEON MD Alicia ANESTHESIA General. COMPLICATIONS None. PREOPERATIVE ANTIBIOTICS Rocephin 1 gram IV. DRAINS 6 x 22 double-J ureteral stents bilaterally. BLOOD LOSS 0. DISPOSITION Stable to recovery. INDICATIONS The patient is a 50-year-old Afro-[place]ian female with a known right kidney stone diagnosed approximately a year ago who presented to the ER with abdominal pain, nausea, vomiting and blood in her stool. The patient had CT of the abdomen and pelvis with contrast done which showed bilateral obstructing ureteral stones with more prominent pain on her left side. Due to this finding, she was then set up for emergent cystoscopy, bilateral stent insertion. After the risks, benefits and alternatives were explained to the patient, the patient proceeded and informed consent was obtained. DETAILS OF PROCEDURE The patient was properly identified, brought back to the cystoscopy suite where she was laid supine on the cystoscopy table. Appropriate time-out was performed under the direction of Anesthesiology. The patient was then induced under general aesthetic. Preoperative antibiotics in the form of Rocephin 1 gram IV was given within one hour to the start of the procedure. The patient was then placed in dorsal lithotomy position, prepped and draped in normal sterile surgical fashion. A rigid cystoscope with a 22-Maldivian sheath was then passed into her bladder per urethra without any difficulty. Her bladder was then carefully examined, did not show any bladder tumor, stones, diverticula or trabeculations. Both ureteral orifices were identified in normal anatomic location. Using a 5-Maldivian open-ended ureteral catheter, I then inserted it inside the right ureteral orifice, flushing the catheter before insertion. Dental Assistant Instructor fluoroscopic image was taken which showed the stones easily in both kidneys as well as her both proximal ureters. A retrograde pyelogram was performed which showed mild right hydronephrosis with a filling defect in her proximal ureter corresponding to the CT scan findings. A wire was then passed through the indwelling ureteral catheter, up into the right kidney without any difficulty. A 6 x 22 double-J stent was then back-loaded over the wire, up into the right kidney with a good curl seen in the upper pole. Both wires were removed and the stent was left in good position. Efflux of contrast was seen from the right ureteral orifice. I followed the intraureteric ridge to the left ureteral orifice. The same 5-Maldivian ureteral catheter was then inserted. A left retrograde pyelogram was performed which showed mild left hydronephrosis with a proximal filling defect consistent with a left renal stone. I then passed the wire up into the left kidney without any difficulty. A 6 x 22 stent was then back-loaded over the wire up into the left kidney. The wire was removed with a curl seen in the renal pelvis in the left kidney. Both stents appeared to be in the proper location. The bladder was then drained, the scope was removed. This concluded the procedure. The patient was extubated and sent to Recovery in stable condition. She will be transferred back to the floor for acute postoperative care. From the Urology standpoint she is cleared for discharge. She can follow up as an outpatient for treatment of her kidney stones. MD IMANI Thornton/CLIFTON /1:08 PM /12:51 PM
--- NOTE | 2016-11-06 17:10 | HHI.GIFU ---
Subjective Remarks Resting in bed. States she is having dysuria, hematuria, no blood in stool. Diffuse abdominal cramping/bloating. Objective Vitals I&O Vital Signs Date Time Temp Pulse Resp B/P Pulse Ox O2 Delivery O2 Flow Rate FiO2 11/06/16 09:15 Room Air 11/06/16 08:00 99.3 72 20 115/82 96 11/06/16 04:00 98.3 74 18 118/55 96 11/06/16 00:00 98.2 84 18 129/60 100 11/05/16 21:50 16 11/05/16 21:00 Room Air 11/05/16 20:00 98.2 76 18 152/68 100 11/05/16 19:40 18 I/O 11/05/16 11/05/16 11/05/16 11/06/16 11/06/16 11/06/16 07:00 15:00 23:00 07:00 15:00 23:00 Intake Total 1042 ml 655 ml 240 ml 240 ml 3409 ml Output Total 2025 ml 700 ml Balance -983 ml 655 ml 240 ml -460 ml 3409 ml Intake Oral 0 ml 480 ml 240 ml 240 ml IV Total 1042 ml 175 ml 3409 ml Output Urine Total 2025 ml 700 ml # Voids 4 2 # Bowel Movements 3 0 1 0 Laboratory Laboratory Tests Test 11/06/16 07:07 White Blood Count 6.5 Red Blood Count 3.37 Hemoglobin 8.9 Hematocrit 27.3 Mean Corpuscular Volume 81.0 Mean Corpuscular Hemoglobin 26.4 Mean Corpuscular Hemoglobin 32.6 Concent Red Cell Distribution Width 14.3 Platelet Count 273 Mean Platelet Volume 8.8 Neutrophils (%) (Auto) 54.5 Lymphocytes (%) (Auto) 36.1 Monocytes (%) (Auto) 7.7 Eosinophils (%) (Auto) 1.4 Basophils (%) (Auto) 0.3 Neutrophils # (Auto) 3.5 Lymphocytes # (Auto) 2.4 Monocytes # (Auto) 0.5 Eosinophils # (Auto) 0.1 Basophils # (Auto) 0.0 CBC Comment DIFF FINAL Differential Comment Sodium Level 141 Potassium Level 3.2 Chloride Level 107 Carbon Dioxide Level 27.7 Anion Gap 6 Blood Urea Nitrogen 6 Creatinine 0.69 Estimat Glomerular Filtration 109 Rate Random Glucose 79 Calcium Level 8.0 Imaging Last Impressions Abdomen/Pelvis CT 11/04/16 0610 Signed Impressions: Service Date/Time: Friday, November 04, 2016 07:41 - CONCLUSION: 1. There is a 7 mm stone in the left mid kidney near the left UPJ. There is some mild hydronephrosis of the left kidney with perinephric edema. 2. There is a tiny 3 mm stone in the proximal left ureter. 3. There are 2 stones in the proximal right ureter which do not appear to causing any significant obstruction at this time. These were present on the prior examination. Zach Murillo MD Physical Exam HEENT: Normocephalic; atraumatic; no jaundice. Throat is clear. NECK: Neck is supple, no JVD, no lymphadenopathy. CHEST: CTA CARDIAC: RRR ABDOMEN: Soft, nondistended, mild diffuse tenderness, no hepatosplenomegaly; bowel sounds are present in all four quadrants. EXTREMITIES: No clubbing, cyanosis, or edema. SKIN: Normal; no rash; no jaundice. RUBBER FLAP CUTTER: No focal deficits; alert and oriented times three. Assessment and Plan Plan ASSESSMENT: -Hematochezia. S/P EGD/Colonoscopy (11/06/16)---> ERythema in transverse, sigmoid colitis, most likely ischemic changes. Erythema in descending, polyp. Retroflexed views revealed small internal hemorrhoids. No further GI bleeding. Patient is a [employer] and is refusing blood transfusion if needed. HH did drop to 8.9/27.3, but states she is having hematuria, not hematochezia. - Anemia with drop in Hgb 8.9/27.3. States she is having hematuria, but no hematochezia. Pt is a Jehovah Witness. -Bilateral Urolithiasis. Abdomen/Pelvis CT-There is a 7 mm stone in the left mid kidney near the left UPJ. There is some mild hydronephrosis of the left kidney with perinephric edema. There is a tiny 3 mm stone in the proximal left ureter. There are 2 stones in the proximal right ureter which do not appear to causing any significant obstruction at this time. These were present on the prior examination. S/P cystoscopy, pyelogram, and stent placement -Chronic neck pain PLAN: - SHANIKA - Await pathology - PPI - Monitor HH - Monitor for GI bleeding - Pt is a Jehovah Witness and does not want blood products - Further recommendations to follow based on results of above. - Patient seen and examined by Dr. Mcknight and myself and this note is written on her behalf. Chacha Meeks Nov 06, 2016 17:10
[2016-11-07] VITALS: BP 116/59; PULSE 73; RESP 20; TEMP 97.9; O2SAT 95
[2016-11-07 04:00] VITALS: BP 136/63; PULSE 70; RESP 20; TEMP 98.2; O2SAT 98
[2016-11-07] MEDS: MORPHINE SULFATE ORAL SOLN 10 MG/0.5 ML SYRINGE PO PRN ×3 (05:44→21:25)
[2016-11-07] MEDS: SODIUM CHLOR 0.9% 1000 ML INJ 1,000 ML IV SCH ×2 (05:46→23:12)
[2016-11-07 08:00] VITALS: BP 117/74; PULSE 69; RESP 18; TEMP 98.3; O2SAT 97
[2016-11-07] MEDS: cefTRIAXone INJ 1,000 MG in SODIUM CHLORIDE 0.9% INJ 100 ML IV SCH (10:02)
[2016-11-07] MEDS: MORPHINE SULFATE 4 MG/ML INJ IV PRN ×3 (10:02→23:13)
[2016-11-07] MEDS: PANTOPRAZOLE SODIUM 40 MG VIAL IV SCH ×2 (11:00→23:12)
--- NOTE | 2016-11-07 11:02 | HHI.GIFU ---
Subjective Remarks Pt c/o more dysuria and hematuria today. No GI bleeding. Tolerating diet. Has some lower abdominal pressure, discomfort, but states this feels more like UTI discomfort. (Chacha Meeks) Objective Vitals I&O Vital Signs Date Time Temp Pulse Resp B/P Pulse Ox O2 Delivery O2 Flow Rate FiO2 11/07/16 08:00 98.3 69 18 117/74 97 11/07/16 06:43 16 11/07/16 04:00 98.2 70 20 136/63 98 11/07/16 00:00 97.9 73 20 116/59 95 11/06/16 22:40 Room Air 11/06/16 20:00 98.6 70 20 127/67 97 11/06/16 19:10 97.4 77 23 124/58 99 11/06/16 16:00 98.2 76 22 152/70 97 11/06/16 12:00 97.8 72 20 138/64 97 I/O 11/06/16 11/06/16 11/06/16 11/07/16 11/07/16 11/07/16 07:00 15:00 23:00 07:00 15:00 23:00 Intake Total 240 ml 3649 ml 380 ml 2130 ml Output Total 700 ml 850 ml 3 ml 1000 ml Balance -460 ml 2799 ml 377 ml 1130 ml Intake Oral 240 ml 240 ml 380 ml 280 ml IV Total 3409 ml 1850 ml Output Urine Total 700 ml 850 ml 3 ml 1000 ml # Bowel Movements 0 0 0 0 Imaging Last Impressions Abdomen/Pelvis CT 11/04/16 0610 Signed Impressions: Service Date/Time: Friday, November 04, 2016 07:41 - CONCLUSION: 1. There is a 7 mm stone in the left mid kidney near the left UPJ. There is some mild hydronephrosis of the left kidney with perinephric edema. 2. There is a tiny 3 mm stone in the proximal left ureter. 3. There are 2 stones in the proximal right ureter which do not appear to causing any significant obstruction at this time. These were present on the prior examination. Zach Murillo MD Physical Exam HEENT: Normocephalic; atraumatic; no jaundice. Throat is clear. NECK: Neck is supple, no JVD, no lymphadenopathy. CHEST: CTA CARDIAC: RRR ABDOMEN: Soft, nondistended, mild diffuse tenderness, no hepatosplenomegaly; bowel sounds are present in all four quadrants. EXTREMITIES: No clubbing, cyanosis, or edema. SKIN: Normal; no rash; no jaundice. : Hematuria, suprapubic tenderness CHEERLEADING COACH: No focal deficits; alert and oriented times three. (Chacha Meeks) Assessment and Plan Plan ASSESSMENT: -Hematochezia. S/P EGD/Colonoscopy (11/06/16)---> ERythema in transverse, sigmoid colitis, most likely ischemic changes. Erythema in descending, polyp. Retroflexed views revealed small internal hemorrhoids. No further GI bleeding. Patient is a [employer] and is refusing blood transfusion if needed. HH did drop to 8.9/27.3 yesterday, todays is pending. She is having hematuria, but no hematochezia. - Anemia with drop in Hgb 8.9/27.3. States she is having hematuria, but no hematochezia. Pt is a Jehovah Witness. - Bilateral Urolithiasis. Abdomen/Pelvis CT-There is a 7 mm stone in the left mid kidney near the left UPJ. There is some mild hydronephrosis of the left kidney with perinephric edema. There is a tiny 3 mm stone in the proximal left ureter. There are 2 stones in the proximal right ureter which do not appear to causing any significant obstruction at this time. These were present on the prior examination. S/P cystoscopy, pyelogram, and stent placement. Pt states she is having more dysuria, suprapubic discomfort, and hematuria. -Chronic neck pain PLAN: - SHANIKA - Await pathology - PPI - Monitor HH - Monitor for GI bleeding - Notify urology of worsening dysuria, hematuria, suprapubic pain - Pt is a Jehovah Witness and does not want blood products - Further recommendations to follow based on results of above. - Patient seen and examined by Dr. Mcknight and myself and this note is written on her behalf. (Chacha Meeks) Physician Comments agree with above (Kate Mcknight MD) Chacha Meeks Nov 07, 2016 11:02 Kate Mcknight MD Nov 07, 2016 17:42
[2016-11-07 12:00] VITALS: BP 132/61; PULSE 75; RESP 18; TEMP 97.3; O2SAT 97
[2016-11-07 14:31] LABS: AUTOMATED NEUTROPHIL # 3.6 TH/MM3 (1.8-7.7); BASOPHIL # 0.1 TH/MM3 (0-0.2); BASOPHIL % 0.9 % (0.0-2.0); EOSINOPHIL # 0.2 TH/MM3 (0-0.4); EOSINOPHIL % 2.3 % (0.0-4.0); HEMATOCRIT 31.6 % (35.0-46.0); HEMO FLAGS DIFF FINAL; LYMPH % 33.1 % (9.0-44.0); LYMPHOCYTE # 2.2 TH/MM3 (1.0-4.8); MEAN CELL VOLUME 80.1 FL (80.0-100.0); MEAN CORPUSCULAR HEMOGLOBIN 27.1 PG (27.0-34.0); MEAN CORPUSCULAR HGB CONC 33.8 % (32.0-36.0); MONO % 8.2 % (0.0-8.0); NEUT % 55.5 % (16.0-70.0); PLATELET COUNT 347 TH/MM3 (150-450); RED BLOOD COUNT 3.94 MIL/MM3 (4.00-5.30); RED CELL DISTRIBUTION WIDTH 14.3 % (11.6-17.2); WHITE BLOOD COUNT 6.6 TH/MM3 (4.0-11.0)
[2016-11-07 15:45] VITALS: BP 139/67; PULSE 77; RESP 25; TEMP 98.4; O2SAT 97
[2016-11-07] MEDS: PHENAZOPYRIDINE HCL 100 MG TAB PO SCH ×2 (16:50→21:11)
--- NOTE | 2016-11-07 18:23 | HHI.PR ---
Subjective Remarks still with pain when urinating, worse when urinating, still with pinkish urine, Hgb stable, no hematochezia Objective Vitals Vital Signs Date Time Temp Pulse Resp B/P Pulse Ox O2 Delivery O2 Flow Rate FiO2 11/07/16 15:45 98.4 77 25 139/67 97 11/07/16 12:00 97.3 75 18 132/61 97 11/07/16 10:07 20 11/07/16 08:00 98.3 69 18 117/74 97 11/07/16 08:00 Room Air 11/07/16 06:43 16 11/07/16 04:00 98.2 70 20 136/63 98 11/07/16 00:00 97.9 73 20 116/59 95 11/06/16 22:40 Room Air 11/06/16 20:00 98.6 70 20 127/67 97 11/06/16 19:10 97.4 77 23 124/58 99 I/O 11/06/16 11/06/16 11/06/16 11/07/16 11/07/16 11/07/16 06:59 14:59 22:59 06:59 14:59 22:59 Intake Total 240 ml 3649 ml 380 ml 2130 ml Output Total 700 ml 850 ml 3 ml 1000 ml 1475 ml Balance -460 ml 2799 ml 377 ml 1130 ml -1475 ml Intake Oral 240 ml 240 ml 380 ml 280 ml IV Total 3409 ml 1850 ml Output Urine Total 700 ml 850 ml 3 ml 1000 ml 1475 ml # Voids 4 # Bowel Movements 0 0 0 0 Result Diagram: 11/07/16 1409 11/06/16 0707 Objective Remarks GENERAL: Not in acute distress, well-nourished. EYES: PERRL, full EOMs, no jaundice, nonicteric, pink conjunctivae without injection, moist mucosa ENT: Nose without bleeding, purulent drainage.Dry oral mucosa. NECK: Trachea midline, no mass, no obvious thyromegaly. CARDIOVASCULAR: Regular rate and rhythm without murmurs, gallops, or rubs. RESPIRATORY: Clear to auscultation with normal respiratory effort. Breath sounds equal bilaterally. No use of accessory muscles of respiration. GASTROINTESTINAL: Abdomen soft, obese, normal bowel sounds, mild left-sided tenderness, nondistended. MUSCULOSKELETAL: Extremities without clubbing, cyanosis, or edema. INTEGUMENTARY: Warm and dry, no rash of generalized distribution. NEUROLOGICAL: Awake, alert, oriented 3. No obvious cranial nerve deficits. Moves all 4 extremities, muscle strength testing 5 over 5. No focal neurologic deficits. A/P Assessment and Plan This is a 50-year-old female with history of right urolithiasis presenting with hematochezia and abdominal pain Hematochezia with abdominal pain secondary to GI bleed- GI consulted, s/p colonoscopy 11/05, showed possibly ischemic colitis, Hgb stable, hemoglobin dropped, recheck H&H tomorrow. F/U biopsy results. Monitor hemoglobin , patient is a [employer]regational, discussed extensively, patient refuses blood transfusion even if she critically needs it or may lead to or significant morbidity.Recheck CBC tomorrow. Bilateral urolithiasis with hydronephrosis on the left with perinephric edema- urinalysis unremarkable but CT scan of the abdomen personally reviewed showed bilateral urolithiasis, with hydronephrosis on the left and perinephric edema. Urology following, discussed with Dr. tracey,again, pain and pink urine is normal , s/p bilateral stenting, cont Augmentin. Cultures negative. Recheck CBC Chronic neck pain-continue oral morphine per home dose DVT prophylaxis: SCDs, pharmacological contraindication because of GI bleed Discharge Planning Discharge once cleared by GI, and if hemoglobin remains stable. Magalis Hubbard MD Nov 07, 2016 18:23
[2016-11-07 20:00] VITALS: BP 145/65; PULSE 79; RESP 22; TEMP 98.5; O2SAT 100
[2016-11-07] MEDS: SODIUM CHLORIDE 0.9% FLUSH 5 ML FLUSH IV SCH (21:00)
[2016-11-08] VITALS: BP 124/67; PULSE 71; RESP 20; TEMP 98.2; O2SAT 100
[2016-11-08 04:00] VITALS: BP 134/77; PULSE 72; RESP 18; TEMP 97.8; O2SAT 99
[2016-11-08] MEDS: MORPHINE SULFATE ORAL SOLN 10 MG/0.5 ML SYRINGE PO PRN ×2 (04:56→09:53)
[2016-11-08] MEDS: PHENAZOPYRIDINE HCL 100 MG TAB PO SCH (04:59)
[2016-11-08 05:17] LABS: AUTOMATED NEUTROPHIL # 3.4 TH/MM3 (1.8-7.7); BASOPHIL % 0.6 % (0.0-2.0); EOSINOPHIL # 0.2 TH/MM3 (0-0.4); EOSINOPHIL % 3.5 % (0.0-4.0); HEMATOCRIT 31.2 % (35.0-46.0); HEMO FLAGS DIFF FINAL; LYMPHOCYTE # 1.8 TH/MM3 (1.0-4.8); MEAN CELL VOLUME 79.8 FL (80.0-100.0); MEAN CORPUSCULAR HEMOGLOBIN 26.7 PG (27.0-34.0); MEAN CORPUSCULAR HGB CONC 33.5 % (32.0-36.0); MONO % 7.6 % (0.0-8.0); NEUT % 57.3 % (16.0-70.0); PLATELET COUNT 328 TH/MM3 (150-450); RED BLOOD COUNT 3.91 MIL/MM3 (4.00-5.30); WHITE BLOOD COUNT 5.9 TH/MM3 (4.0-11.0)
[2016-11-08 05:38] LABS: BICARBONATE 28.8 MEQ/L (21.0-32.0); POTASSIUM 3.1 MEQ/L (3.5-5.1)
[2016-11-08] MEDS: SODIUM CHLOR 0.9% 1000 ML INJ 1,000 ML IV SCH (06:30)
[2016-11-08 08:00] VITALS: BP 128/60; PULSE 67; RESP 18; TEMP 97.9; O2SAT 99
[2016-11-08] MEDS ORDERED: POTASSIUM CL 40 MEQ/30 ML LIQ UDC PO ONE (08:30)
[2016-11-08] MEDS ORDERED: PHEN-427 PO (08:57)
[2016-11-08] MEDS ORDERED: BELL16.218 RECTAL (08:57)
--- NOTE | 2016-11-08 09:01 | HHI.DS ---
Discharge Summary Admission Date Nov 04, 2016 at 09:19 Discharge Date: Nov 08, 2016 Admitting Diagnosis renal colic, hydronephrosis, hematochezia, intractable pain (1) Hydronephrosis of left kidney ICD Code: N13.30 Diagnosis: Principal (2) Renal colic, bilateral ICD Code: N23 Diagnosis: Secondary (3) Hematochezia ICD Code: K92.1 Diagnosis: Secondary (4) Renal stone ICD Code: N20.0 Diagnosis: Principal Procedures Bilateral ureteral stent placement, colonoscopy. Brief History - From Admission This is a 50-year-old female with no comorbidities other than history of right urolithiasis presenting with left back pain and hematochezia since yesterday night after dinner. She just ate her usual dinner at home when she started having left flank pain, moderate, nonradiating, associated with loose stools with red blood and tenesmus. She thought she had food poisoning. She also had nausea and vomiting of post prandial material but no hematemesis. She did not have any fever, chills, chest pain, shortness of breath, headache, urinary symptoms or hematuria. Now, she is also having right sided moderate abdominal pain, nonradiating. CT scan of the abdomen was then at the ED which showed bilateral renal stones with hydronephrosis on the left with perinephric edema. Of note, she takes morphine and Goody's ( caffeine, Tylenol, aspirin) also a daily basis for her chronic neck pain. No previous colonoscopy, no history of colon cancer or peptic ulcer disease in the family. . There is also no history of Crohn's disease or inflammatory bowel disease in family. No recent antibiotic use. CBC/BMP: 11/08/16 0441 11/08/16 0441 Significant Findings Laboratory Tests Test 11/05/16 11/06/16 11/07/16 11/08/16 10:35 07:07 14:09 04:41 Hemoglobin 10.1 GM/DL 8.9 GM/DL 10.7 GM/DL 10.4 GM/DL (11.6-15.3) (11.6-15.3) (11.6-15.3) (11.6-15.3) Hematocrit 31.2 % 27.3 % 31.6 % 31.2 % (35.0-46.0) (35.0-46.0) (35.0-46.0) (35.0-46.0) Red Blood Count 3.37 MIL/MM3 3.94 MIL/MM3 3.91 MIL/MM3 (4.00-5.30) (4.00-5.30) (4.00-5.30) Mean Corpuscular Hemoglobin 26.4 PG 26.7 PG (27.0-34.0) (27.0-34.0) Potassium Level 3.2 MEQ/L 3.1 MEQ/L (3.5-5.1) (3.5-5.1) Blood Urea Nitrogen 6 MG/DL (7-18) 3 MG/DL (7-18) Calcium Level 8.0 MG/DL 8.4 MG/DL (8.5-10.1) (8.5-10.1) Monocytes (%) (Auto) 8.2 % (0.0-8.0) Mean Corpuscular Volume 79.8 FL (80.0-100.0) Imaging Last Impressions Abdomen/Pelvis CT 11/04/16 0610 Signed Impressions: Service Date/Time: Friday, November 04, 2016 07:41 - CONCLUSION: 1. There is a 7 mm stone in the left mid kidney near the left UPJ. There is some mild hydronephrosis of the left kidney with perinephric edema. 2. There is a tiny 3 mm stone in the proximal left ureter. 3. There are 2 stones in the proximal right ureter which do not appear to causing any significant obstruction at this time. These were present on the prior examination. Zach Murillo MD PE at Discharge GENERAL: Not in acute distress, well-nourished. EYES: PERRL, full EOMs, no jaundice, nonicteric, pink conjunctivae without injection, moist mucosa ENT: Nose without bleeding, purulent drainage.Dry oral mucosa. NECK: Trachea midline, no mass, no obvious thyromegaly. CARDIOVASCULAR: Regular rate and rhythm without murmurs, gallops, or rubs. RESPIRATORY: Clear to auscultation with normal respiratory effort. Breath sounds equal bilaterally. No use of accessory muscles of respiration. GASTROINTESTINAL: Abdomen soft, obese, normal bowel sounds, mild left-sided tenderness, nondistended. MUSCULOSKELETAL: Extremities without clubbing, cyanosis, or edema. INTEGUMENTARY: Warm and dry, no rash of generalized distribution. NEUROLOGICAL: Awake, alert, oriented 3. No obvious cranial nerve deficits. Moves all 4 extremities, muscle strength testing 5 over 5. No focal neurologic deficits. Pt update on day of discharge Pain is now more controlled, 04/01, now with orange, quite pinkish urine. No hematochezia or melena. No shortness of breath or dyspnea on exertion. Hemoglobin is stable. Hospital Course This is a 50-year-old female with history of right urolithiasis presenting with hematochezia and abdominal pain. Patient had hematochezia with abdominal pain likely secondary to GI bleed, gastric antrum neurology was consulted, s/p colonoscopy 11/05, showed possibly ischemic colitis, Hgb remained stable, did not require any transfusion. Patient was cleared by GI, follow up with him in 3 weeks for biopsy results. Patient was also found to have bilateral urolithiasis with hydronephrosis on the left with perinephric edema, urinalysis unremarkable but CT scan of the abdomen showed bilateral urolithiasis, with hydronephrosis on the left and perinephric edema. Urology consulted, status post myelogram with bilateral ureteral stent placement. Discussed with Dr. Vargas prior to discharge because of continuous pain and mild hematuria, he opined that this is normal. Continue Augmentin, finished 1 week of treatment. Continue Percocet, Pyridium, and will give belladonna opium suppository. Follow -up with urology in 2 weeks. Pt Condition on Discharge: Good Discharge Disposition: Discharge Home Discharge Time: > 30 minutes Discharge Instructions DIET: Follow Instructions for: Heart Healthy Diet Activities you can perform: Regular-No Restrictions Follow up Referrals: Gastroenterology - 3 Weeks Urology - 2 Weeks with Roland Vargas MD New Medications: Belladonna-Opium Supp (Belladonna-Opium Supp) 16.2-30 Mg Supp 1 SUPP RECTAL BID PRN PAIN Days 10 Ref 0 SUPP Oxycodone-Acetaminophen (Percocet) 10-325 mg Tab 1 TAB PO Q4H PRN PAIN #20 Ref 0 TAB Phenazopyridine HCl (Phenazopyridine HCl) 100 Mg Tab 100 MG PO Q8HR PRN pain #20 TAB Continued Medications: Morphine Sulfate (Morphine Sulfate) 25 Mg/Ml Inj 30 MG PO Q4HR PRN PAIN SCALE 5 TO 10 Magalis Hubbard MD Nov 08, 2016 09:01
[2016-11-08] MEDS ORDERED: AUGM875T PO (09:03)
[2016-11-08] MEDS ORDERED: MORP1TAB25 PO (10:03)
[2016-11-08 12:00] VITALS: BP 138/69; PULSE 73; RESP 20; TEMP 97.8; O2SAT 99
== END 2016-11-08 14:24 | disposition home or self-care (01) | DRG 694 ==
LOC: NEPC 05:20 → NEDA 09:19 → OBSVTOIN 09:19 → N04A 14:30
PROVIDERS: ADMIT Hospitalist; ATTEND Hospitalist
PROC: BT141ZZ Fluoroscopy of Kidneys, Ureters and Bladder using Low Osmolar Contrast (ICD-10-PCS; 2016-11-04)
PROC: 0T788DZ Dilation of Bilateral Ureters with Intraluminal Device, Via Natural or Artificial Opening Endoscopic (ICD-10-PCS; principal; 2016-11-04 12:24)
PROC: 0DBM8ZX Excision of Descending Colon, Via Natural or Artificial Opening Endoscopic, Diagnostic (ICD-10-PCS; 2016-11-05)
PROC: 0DBL8ZX Excision of Transverse Colon, Via Natural or Artificial Opening Endoscopic, Diagnostic (ICD-10-PCS; 2016-11-05)
DX: N13.2 Hydronephrosis with renal and ureteral calculous obstruction (principal); K55.9 Vascular disorder of intestine, unspecified; N20.1 Calculus of ureter; Z68.41 Body mass index [BMI] 40.0-44.9, adult; K92.1 Melena; K63.5 Polyp of colon; D12.4 Benign neoplasm of descending colon; G89.29 Other chronic pain; M54.2 Cervicalgia; Z53.1 Procedure and treatment not carried out because of patient's decision for reasons of belief and group pressure; Z79.82 Long term (current) use of aspirin; Z79.891 Long term (current) use of opiate analgesic; Z79.899 Other long term (current) drug therapy; E66.9 Obesity, unspecified; D64.9 Anemia, unspecified; K64.4 Residual hemorrhoidal skin tags; K64.8 Other hemorrhoids
CPT/HCPCS: 74177; 74420; 80048; 80053; 81001; 83605; 83690; 85007; 85014; 85018; 85025; 85027; 85610; 85730; 86850; 86900; 86901; 87328; 87329; 88305; 93005; 96361; 96374; 96375; 96376; C1769; C2617; C9113; J0696; J2250; J2270; J2405; J3010; J7030; J7120; Q9967